=== PATIENT | male | born 1985 | race African-American/Black ===

== ENCOUNTER → 2020-12-22 | Emergency (ER) | payer OTHER ==
[~2020-12-22] VITALS: Ht 175.3 cm; Wt 104.3 kg
[2020-12-22 11:46] VITALS: BP 131/103
== END | disposition left against medical advice (07) ==
LOC: EDBD 11:46 → ER 11:46
DX: K08.89 Other specified disorders of teeth and supporting structures (principal); R22.0 Localized swelling, mass and lump, head; Z53.21 Procedure and treatment not carried out due to patient leaving prior to being seen by health care provider